=== PATIENT | female | born 1955 | race Caucasian/White ===

== ENCOUNTER 2016-06-01 20:40 | Inpatient (IN) | payer MEDICARE, OTHER ==
[~2016-06-01] VITALS: Ht 160 cm; Wt 72.1 kg
[2016-06-01 23:35] LABS: HEMOGLOBIN 13.6 gm/dl (12.3-15.3); RED BLOOD COUNT 4.31 M/UL (4.00-5.10)
[2016-06-01 23:53] LABS: BUN/CREATININE RATIO 19 (0-10)
[2016-06-02] MEDS ORDERED: COUMADIN 1MG TAB1 MG PO (12:55)
[2016-06-02] MEDS ORDERED: NORVASC 5 MG TAB5 MG PO (12:55)
[2016-06-02] MEDS ORDERED: LIPITOR TAB 2020 MG PO (12:55)
[2016-06-02] MEDS ORDERED: EFFEXOR XR 150150 MG PO (12:55)
[2016-06-02] MEDS ORDERED: KLONOPIN TAB 00.5 MG PO (12:56)
[2016-06-02] MEDS ORDERED: LORTAB 7.5-3251 EACH PO (12:56)
[2016-06-02] MEDS ORDERED: LISINOPRIL20 MG PO (12:56)
[2016-06-02] MEDS ORDERED: OMEPRAZOLE40 MG PO (12:57)
[2016-06-02] MEDS ORDERED: FOLIC ACID 1 MG1 MG PO (12:58)
[2016-06-02] MEDS ORDERED: ASPIRIN EC81 MG PO (12:58)
[2016-06-02] MEDS ORDERED: ZANAFLEX4 M1 PO (12:58)
[2016-06-02] MEDS ORDERED: NEURONTIN 300300 MG PO (12:58)
[2016-06-02] MEDS ORDERED: BENADRYL 25MG C25 MG PO (12:59)
[2016-06-03 05:45] LABS: HEMOGLOBIN 12.8 gm/dl (12.3-15.3); RED BLOOD COUNT 4.15 M/UL (4.00-5.10); WHITE BLOOD COUNT 10.9 K/UL (4.5-11.0)
[2016-06-03 06:03] LABS: BUN/CREATININE RATIO 20 (0-10)
--- NOTE | 2016-06-03 18:34 | NUR ---
1725 - MD DR ADDISON TO ROOM; PTS BP NOTED TO BE 71/40 ON MONITOR; BP RECHECKED MANUALLY 78/44. RR 17/SHALLOW. O2 SATS 95% ON O2/2L/NC. ORDERS GIVEN/FOLLOWED FOR NS 500CC BOLUS; PT HAS NO ACUTE DISTRESS NOTED; WILL CONT TO MONITOR, PT AWAKENS TO VERBAL STIMULI, PT ABLE TO TELL NAME/BIRTHDAY/SURROUNDINGS. NO ACUTE DISTRESS NOTED 1755 IVF BOLUS COMPLETE; BP 74/40 RR 17/SHALLOW. PT CONT TO AWAKEN TO VERBAL STIMULI WITH MINIMAL STIMULATION. DR. ADDISON NOTIFIED; ADDITIONAL 500CC BOLUS GIVEN PER MD ORDER. PT CONT TO HAVE NO ACUTE DISTRESS NOTED; WILL CONT TO MONITOR. 1830 - PT BP RECHECKED, MANUALLY 98/64. DR. ADDISON NOTIFIED. SEE NEW ORDERS. PT CONT TO AWAKE TO VERBAL STIMULI; NO ACUTE DISTRESS NOTED; WILL CONT TO MONITOR.
[2016-06-04 07:41] LABS: BUN/CREATININE RATIO 20 (0-10)
[2016-06-04 08:38] LABS: WHITE BLOOD COUNT 9.2 K/UL (4.5-11.0)
[2016-06-04 08:39] LABS: HEMOGLOBIN 9.1 gm/dl (12.3-15.3)
[2016-06-05 05:56] LABS: HEMOGLOBIN 9.2 gm/dl (12.3-15.3); RED BLOOD COUNT 2.97 M/UL (4.00-5.10)
[2016-06-05 06:16] LABS: BUN/CREATININE RATIO 25 (0-10)
[2016-06-06 06:25] LABS: HEMOGLOBIN 9.7 gm/dl (12.3-15.3); RED BLOOD COUNT 3.16 M/UL (4.00-5.10); WHITE BLOOD COUNT 7.3 K/UL (4.5-11.0)
[2016-06-06 06:58] LABS: BUN/CREATININE RATIO 20 (0-10)
== END 2016-06-07 14:00 | disposition home or self-care (01) | DRG 493 ==
LOC: ER1 20:40 → ZEROF 06-02 08:42 → M/S 06-02 08:42
PROVIDERS: Internal Medicine; Orthopaedic Surgery; Physician Assistant; ADMIT Family Medicine
PROC: 0QSG04Z Reposition Right Tibia with Internal Fixation Device, Open Approach (ICD-10-PCS; 2016-06-03)
PROC: 0QSJ04Z Reposition Right Fibula with Internal Fixation Device, Open Approach (ICD-10-PCS; principal; 2016-06-03 15:45)
DX: S82.841A Displaced bimalleolar fracture of right lower leg, initial encounter for closed fracture (principal); D68.59 Other primary thrombophilia; W10.9XXA Fall (on) (from) unspecified stairs and steps, initial encounter; Y92.039 Unspecified place in apartment as the place of occurrence of the external cause; I95.2 Hypotension due to drugs; T50.995A Adverse effect of other drugs, medicaments and biological substances, initial encounter; I10 Essential (primary) hypertension; K21.9 Gastro-esophageal reflux disease without esophagitis; F17.210 Nicotine dependence, cigarettes, uncomplicated; Z79.01 Long term (current) use of anticoagulants; Z86.711 Personal history of pulmonary embolism; F41.9 Anxiety disorder, unspecified; Z90.49 Acquired absence of other specified parts of digestive tract; Z90.710 Acquired absence of both cervix and uterus; Z79.82 Long term (current) use of aspirin; Z79.899 Other long term (current) drug therapy; Z82.49 Family history of ischemic heart disease and other diseases of the circulatory system; Z83.3 Family history of diabetes mellitus; D72.829 Elevated white blood cell count, unspecified; G89.29 Other chronic pain; M54.9 Dorsalgia, unspecified; Z87.311 Personal history of (healed) other pathological fracture; F32.9 Major depressive disorder, single episode, unspecified
CPT/HCPCS: 27808; 36415; 51702; 71010; 72128; 72131; 73564; 73600; 73610; 73630; 76000; 80048; 80053; 81001; 83735; 85025; 85027; 85610; 85730; 90471; 90714; 93005; 96374; 96375; 96376; 97110; 97116; 97530; 97535; 99152; 99153; 99284; C1713; J0690; J1100; J1885; J2250; J2270; J2405; J2550; J2765; J3010; J7030; J7120

== ENCOUNTER → 2016-07-08 | Outpatient (CLI) | payer MEDICARE ==
[~2016-07-08] MED LIST: ASPIRIN EC81 MG PO; BENADRYL 25MG C25 MG PO; COUMADIN 1MG TAB1 MG PO; EFFEXOR XR 150150 MG PO; FOLIC ACID 1 MG1 MG PO; KLONOPIN TAB 00.5 MG PO; LIPITOR TAB 2020 MG PO; LISINOPRIL20 MG PO; LORTAB 7.5-3251 EACH PO; NEURONTIN 300300 MG PO; NORVASC 5 MG TAB5 MG PO; OMEPRAZOLE40 MG PO; ZANAFLEX4 M1 PO
== END ==
LOC: HH 14:13
DX: Z51.81 Encounter for therapeutic drug level monitoring (principal); Z79.01 Long term (current) use of anticoagulants; Z86.711 Personal history of pulmonary embolism
CPT/HCPCS: 85610

== ENCOUNTER → 2016-08-03 | Outpatient (CLI) | payer MEDICARE | LOC: LAB 17:02 | DX: Z51.81 Encounter for therapeutic drug level monitoring (principal); Z86.711 Personal history of pulmonary embolism; Z79.01 Long term (current) use of anticoagulants | CPT/HCPCS: 85610 ==

== ENCOUNTER → 2016-08-09 | Outpatient (CLI) | payer MEDICARE | LOC: OPS 10:52 | DX: Z51.81 Encounter for therapeutic drug level monitoring (principal); Z79.01 Long term (current) use of anticoagulants; Z86.711 Personal history of pulmonary embolism | CPT/HCPCS: 85610 ==

== ENCOUNTER → 2020-05-07 | Outpatient (CLI) | payer MEDICARE, OTHER ==
[~2020-05-07] MED LIST changes: +AUGMENTIN 875-1 EACH PO; +B-12500 MC1 SL; +BENADRYL25 MG PO; +BENTYL 20MG TAB20 MG PO; +CARVEDILOL12.5 MG PO; +CEFUROXIME250 MG PO; +CLONAZEPAM1 MG PO; +CLONIDINE HCL0.1 MG PO; +COQ-10100 MG PO; +COREG 12.5MG12.5 MG PO; +CYCLOBENZAPRINE10 MG PO; +DOK100 MG PO; +ECOTRIN81 MG PO; +FERROUS SULFAT325 M2 PO; +FLAGYL500 MG PO; +FLORASTOR250 MG PO; +FOLIC ACID1 MG PO; +FUROSEMIDE20 MG PO; +GABAPENTIN300 MG PO; +GABAPENTIN600 MG PO; +GRALISE600 MG PO; +HYDROCODON-ACE1 EAC2 PO; +JANTOVEN1 MG PO; +LASIX20 MG PO; +LOVENOX80 MG/0.8 SC; +METOPROLOL SUCC25 MG PO; +MYCOSTATIN100000 UTS PO; +NITROGLYCERIN0.4 MG SL; +NORCO 7.5-3251 EACH PO; +OMEPRAZOLE20 MG PO; +POTASSIUM CHLO10 ME1 PO; +POTASSIUM CHLO10 ME2 PO; +PROBIOTIC & AC1 EACH PO; +PROTONIX 40 MG40 M1 PO; +REPATHA SC; +REPATHA SQ; +TOPROL XL25 MG PO; +VITAMIN B-12500 MCG PO; +VITAMIN D3125 MCG PO; +VITAMIN D3250 MC2 PO; +ZOFRAN ODT 4 MG4 MG PO
== END ==
LOC: RAD 08:00
DX: K52.9 Noninfective gastroenteritis and colitis, unspecified (principal); K22.2 Esophageal obstruction; K44.9 Diaphragmatic hernia without obstruction or gangrene
CPT/HCPCS: 74220

== ENCOUNTER 2020-05-25 18:59 | Emergency (ER) | payer MEDICARE, OTHER ==
[~2020-05-25 18:59] MED LIST changes: -CEFUROXIME250 MG PO; -GABAPENTIN300 MG PO; -GRALISE600 MG PO; -HYDROCODON-ACE1 EAC2 PO; -OMEPRAZOLE20 MG PO; -PROTONIX 40 MG40 M1 PO
[2020-05-25 19:35] LABS: RED BLOOD COUNT 4.09 M/UL (4.00-5.10); WHITE BLOOD COUNT 10.8 K/UL (4.5-11.0)
[2020-05-25 19:38] LABS: HEMOGLOBIN 12.7 gm/dl (12.3-15.3)
[2020-05-25 19:51] LABS: BUN/CREATININE RATIO 41 (0-10)
[2020-05-26] MEDS ORDERED: METOPROLOL SUCC25 MG PO (11:08)
== END 2020-05-25 22:28 | disposition left against medical advice (07) ==
LOC: ER1 18:59
PROVIDERS: Physician Assistant
DX: K62.5 Hemorrhage of anus and rectum (principal); I10 Essential (primary) hypertension; F17.210 Nicotine dependence, cigarettes, uncomplicated; Z86.711 Personal history of pulmonary embolism; Z90.49 Acquired absence of other specified parts of digestive tract; Z88.5 Allergy status to narcotic agent; Z79.01 Long term (current) use of anticoagulants; Z90.710 Acquired absence of both cervix and uterus
CPT/HCPCS: 80053; 83605; 85025; 85610; 96374; 96375; 99283; C9113; J2060; J2250; J2405; J7030; Q9967

== ENCOUNTER 2020-05-26 04:50 | Inpatient (IN) | payer MEDICARE, OTHER ==
[~2020-05-26] VITALS: Ht 172.7 cm; Wt 70.0 kg
[2020-05-26 05:03] LABS: WHITE BLOOD COUNT 8.5 K/UL (4.5-11.0)
[2020-05-26 05:06] LABS: RED BLOOD COUNT 3.58 M/UL (4.00-5.10)
[2020-05-26 05:28] LABS: BUN/CREATININE RATIO 63 (0-10)
[2020-05-26 06:58] LABS: HEMOGLOBIN 10.8 gm/dl (12.3-15.3)
[2020-05-26] MEDS ORDERED: METOPROLOL SUCC25 MG PO (11:08)
[2020-05-26 13:07] LABS: HEMOGLOBIN 13.8 gm/dl (12.3-15.3); RED BLOOD COUNT 4.44 M/UL (4.00-5.10); WHITE BLOOD COUNT 11.4 K/UL (4.5-11.0)
[2020-05-26 13:39] LABS: BUN/CREATININE RATIO 52 (0-10)
[2020-05-27 06:25] LABS: WHITE BLOOD COUNT 11.1 K/UL (4.5-11.0)
[2020-05-27 06:28] LABS: HEMOGLOBIN 11.6 gm/dl (12.3-15.3); RED BLOOD COUNT 3.78 M/UL (4.00-5.10)
[2020-05-27 06:57] LABS: BUN/CREATININE RATIO 41 (0-10)
[2020-05-28 05:08] LABS: HEMOGLOBIN 10.8 gm/dl (12.3-15.3); RED BLOOD COUNT 3.45 M/UL (4.00-5.10); WHITE BLOOD COUNT 11.3 K/UL (4.5-11.0)
[2020-05-28 05:26] LABS: BUN/CREATININE RATIO 38 (0-10)
[2020-05-29 05:20] LABS: HEMOGLOBIN 12.1 gm/dl (12.3-15.3); RED BLOOD COUNT 3.87 M/UL (4.00-5.10); WHITE BLOOD COUNT 13.3 K/UL (4.5-11.0)
[2020-05-29 05:34] LABS: BUN/CREATININE RATIO 20 (0-10)
[2020-05-30 03:49] LABS: HEMOGLOBIN 11.7 gm/dl (12.3-15.3); RED BLOOD COUNT 3.75 M/UL (4.00-5.10)
[2020-05-30 04:28] LABS: BUN/CREATININE RATIO 22 (0-10)
[2020-06-01 03:14] LABS: HEMOGLOBIN 11.6 gm/dl (12.3-15.3); RED BLOOD COUNT 3.74 M/UL (4.00-5.10); WHITE BLOOD COUNT 9.5 K/UL (4.5-11.0)
--- NOTE | 2020-06-01 03:22 | NUR ---
PT'S TUBE FEEDING WAS GOING AT 40 ML/HR. PT WAS COMPLAINING OF ABDOMINAL PAIN AND HAVING DIARRHEA. PT HAD 0 ML OF RESIDUAL. I DECREASED PT'S TUBE FEEDING TO 20 ML/HR TO SEE IF PT TOLERATED THAT BETTER. PT HAS NO COMPLAINTS AT THIS MOMENT. WILL CONTINUE TO MONITOR.
[2020-06-01 03:50] LABS: BUN/CREATININE RATIO 24 (0-10)
--- NOTE | 2020-06-01 12:28 | NUR ---
REMOVED OLD FENTANYL PATCH FROM BAILEE AND DISPOSED OF IN HAZARDOUS WASTE CONTAINER IN MED ROOM. WITNESSES BY ANA MONTERO RN
--- NOTE | 2020-06-01 18:26 | NUR ---
PT REMOVED HER CENTRAL LINE DRESSING. REPLACED CENTRAL LINE WITH NEW DRESSING. PT INSTRUCTED ON IMPORTANCE OF LEAVING LINE ALONE IN ORDER TO PREVENT INFECTION.
--- NOTE | 2020-06-01 21:58 | NUR ---
PT CONFUSED, CLIMBING OUT OF BED. [facility] AND NOTIFIED PT'S SON KEYSHA TO INFORM HIM OF THE SITUATION AND TO SEE IF HE WANTED TO COME SIT WITH THE PATIENT. UNFORTUNATELY HE IS UNABLE TO DO SO AT THIS TIME. WILL CONTINUE TO MONITOR.
--- NOTE | 2020-06-01 22:06 | NUR ---
ZION (CHARGE NURSE) WILL BE SITTING WITH PATIENT. WILL CONTINUE TO MONITOR.
--- NOTE | 2020-06-01 22:46 | NUR ---
PT IS VERY CONFUSED, UNCOOPERATIVE AND AGITATED. DRUG DEPARTMENT WORKER WAS NOTIFIED OF SITUATION. PT NOW HAS A 1:1 SITTER AT BEDSIDE. PT'S SON KEYSHA WAS ALSO NOTIFIED OF PT'S CURRENT CONFUSION.
[2020-06-02 03:52] LABS: BUN/CREATININE RATIO 29 (0-10)
[2020-06-03 03:14] LABS: HEMOGLOBIN 12.1 gm/dl (12.3-15.3); RED BLOOD COUNT 3.92 M/UL (4.00-5.10)
[2020-06-03 03:17] LABS: WHITE BLOOD COUNT 6.7 K/UL (4.5-11.0)
[2020-06-03 03:37] LABS: BUN/CREATININE RATIO 29 (0-10)
[2020-06-03] MEDS ORDERED: GABAPENTIN300 MG PO (09:26)
[2020-06-03] MEDS ORDERED: PROTONIX 40 MG40 M1 PO (09:26)
[2020-06-03] MEDS ORDERED: CEFUROXIME250 MG PO (09:32)
[2020-06-04 03:05] LABS: HEMOGLOBIN 10.9 gm/dl (12.3-15.3)
[2020-06-04 03:11] LABS: RED BLOOD COUNT 3.49 M/UL (4.00-5.10)
[2020-06-04 03:29] LABS: BUN/CREATININE RATIO 17 (0-10)
[2020-06-05 03:06] LABS: HEMOGLOBIN 10.8 gm/dl (12.3-15.3); RED BLOOD COUNT 3.51 M/UL (4.00-5.10); WHITE BLOOD COUNT 6.7 K/UL (4.5-11.0)
[2020-06-05 03:34] LABS: BUN/CREATININE RATIO 14 (0-10)
== END 2020-06-05 16:09 | disposition home or self-care (01) | DRG 919 ==
LOC: ER1 04:50 → CCU 08:22 → CDU 08:22 → M/S 08:22 → CCU 10:12 → M/S 05-31 18:21
PROVIDERS: Emergency Medicine; Internal Medicine; Psychiatry & Neurology Neurology; ADMIT Internal Medicine Infectious Disease
PROC: 30233N1 Transfusion of Nonautologous Red Blood Cells into Peripheral Vein, Percutaneous Approach (ICD-10-PCS; principal; 2020-05-26)
PROC: 0BH17EZ Insertion of Endotracheal Airway into Trachea, Via Natural or Artificial Opening (ICD-10-PCS; 2020-05-26)
PROC: 5A1945Z Respiratory Ventilation, 24-96 Consecutive Hours (ICD-10-PCS; 2020-05-26)
PROC: 02HV33Z Insertion of Infusion Device into Superior Vena Cava, Percutaneous Approach (ICD-10-PCS; 2020-05-26)
DX: K91.840 Postprocedural hemorrhage of a digestive system organ or structure following a digestive system procedure (principal); G92 Toxic encephalopathy; J96.01 Acute respiratory failure with hypoxia; J18.9 Pneumonia, unspecified organism; D68.2 Hereditary deficiency of other clotting factors; N30.00 Acute cystitis without hematuria; I50.32 Chronic diastolic (congestive) heart failure; D62 Acute posthemorrhagic anemia; D68.59 Other primary thrombophilia; Y83.8 Other surgical procedures as the cause of abnormal reaction of the patient, or of later complication, without mention of misadventure at the time of the procedure; T42.6X1A Poisoning by other antiepileptic and sedative-hypnotic drugs, accidental (unintentional), initial encounter; Z20.822 Contact with and (suspected) exposure to COVID-19; I48.0 Paroxysmal atrial fibrillation; I16.0 Hypertensive urgency; B96.1 Klebsiella pneumoniae [K. pneumoniae] as the cause of diseases classified elsewhere; E87.6 Hypokalemia; E11.9 Type 2 diabetes mellitus without complications; I11.0 Hypertensive heart disease with heart failure; F41.9 Anxiety disorder, unspecified; Z90.49 Acquired absence of other specified parts of digestive tract; K21.9 Gastro-esophageal reflux disease without esophagitis; K22.2 Esophageal obstruction; F17.210 Nicotine dependence, cigarettes, uncomplicated; Z86.711 Personal history of pulmonary embolism; Z79.01 Long term (current) use of anticoagulants; Z90.710 Acquired absence of both cervix and uterus; Z98.890 Other specified postprocedural states; Z88.5 Allergy status to narcotic agent; Z79.82 Long term (current) use of aspirin; Z79.899 Other long term (current) drug therapy; Z82.49 Family history of ischemic heart disease and other diseases of the circulatory system
CPT/HCPCS: 31500; 36415; 36430; 36600; 70450; 71045; 74018; 80048; 80053; 81001; 82140; 82272; 82550; 82553; 82803; 83540; 83550; 83605; 83690; 83735; 84132; 84484; 85014; 85018; 85025; 85610; 85730; 86140; 86850; 86900; 86901; 86920; 86927; 87040; 87077; 87086; 87186; 92526; 92610; 93005; 94002; 94003; 94760; 96374; 96375; 96376; 97110-GP-CQ; 97116-GP-CQ; 97162; 99283; 99285; C9113; J0360; J1160; J1170; J1335; J1630; J1650; J1940; J2060; J2250; J2405; J2704; J3010; J3360; J3480; J3486; J7030; J7040; P9016; P9017; Q9967; U0002

== ENCOUNTER → 2020-06-10 | Outpatient (CLI) | payer MEDICARE, OTHER ==
[~2020-06-10] MED LIST changes: +CEFUROXIME250 MG PO; +GABAPENTIN300 MG PO; +GRALISE600 MG PO; +HYDROCODON-ACE1 EAC2 PO; +OMEPRAZOLE20 MG PO; +PROTONIX 40 MG40 M1 PO
[2020-06-10 12:48] LABS: HEMOGLOBIN 11.8 gm/dl (12.3-15.3); RED BLOOD COUNT 3.78 M/UL (4.00-5.10); WHITE BLOOD COUNT 8.2 K/UL (4.5-11.0)
== END ==
LOC: LAB 12:10
PROVIDERS: Family Medicine
DX: I48.91 Unspecified atrial fibrillation (principal); K92.2 Gastrointestinal hemorrhage, unspecified
CPT/HCPCS: 36415; 80048; 82728; 83540; 83550; 85025; 85610

== ENCOUNTER 2020-07-15 17:13 | Emergency (ER) | payer MEDICARE, OTHER ==
[~2020-07-15 17:13] MED LIST changes: -GRALISE600 MG PO; -HYDROCODON-ACE1 EAC2 PO; -OMEPRAZOLE20 MG PO
[2020-07-15 17:59] LABS: HEMOGLOBIN 12.8 gm/dl (12.3-15.3); RED BLOOD COUNT 4.11 M/UL (4.00-5.10); WHITE BLOOD COUNT 9.2 K/UL (4.5-11.0)
[2020-07-15 18:25] LABS: BUN/CREATININE RATIO 25 (0-10)
== END 2020-07-15 22:25 | disposition short-term general hospital (02) ==
LOC: ER1 17:13
PROVIDERS: Student in an Organized Health Care Education/Training Program
DX: K63.1 Perforation of intestine (nontraumatic) (principal); K62.5 Hemorrhage of anus and rectum; D64.9 Anemia, unspecified; I10 Essential (primary) hypertension; Z90.49 Acquired absence of other specified parts of digestive tract; Z88.5 Allergy status to narcotic agent; F17.210 Nicotine dependence, cigarettes, uncomplicated; Z79.899 Other long term (current) drug therapy
CPT/HCPCS: 36430; 80053; 81001; 82550; 82553; 83605; 83735; 83874; 84100; 84484; 85025; 85610; 85730; 86850; 86870; 86900; 86901; 86920; 86922; 86927; 87040; 87086; 93005; 96365; 96366; 96367; 96368; 96375; 99284; J0692; J1170; J2405; J3475; J7030; J7070; P9017; Q9967

== ENCOUNTER 2020-08-17 15:57 | Emergency (ER) | payer MEDICARE, OTHER ==
[2020-08-17 16:57] LABS: HEMOGLOBIN 10.3 gm/dl (12.3-15.3); RED BLOOD COUNT 3.41 M/UL (4.00-5.10); WHITE BLOOD COUNT 9.4 K/UL (4.5-11.0)
[2020-08-17 17:16] LABS: BUN/CREATININE RATIO 14 (0-10)
[2020-08-18 06:22] LABS: HEMOGLOBIN 10.1 gm/dl (12.3-15.3); RED BLOOD COUNT 3.36 M/UL (4.00-5.10); WHITE BLOOD COUNT 8.4 K/UL (4.5-11.0)
[2020-08-18 08:34] LABS: BUN/CREATININE RATIO 14 (0-10)
[2020-08-18 14:28] LABS: HEMOGLOBIN 11.3 gm/dl (12.3-15.3); WHITE BLOOD COUNT 8.8 K/UL (4.5-11.0)
[2020-08-18 14:33] LABS: RED BLOOD COUNT 3.8 M/UL (4.00-5.10)
[2020-08-18 14:45] LABS: BUN/CREATININE RATIO 14 (0-10)
[2020-08-18] MEDS ORDERED: GRALISE600 MG PO (17:46)
[2020-08-18] MEDS ORDERED: OMEPRAZOLE40 MG PO (17:48)
[2020-08-18] MEDS ORDERED: COREG 12.5MG12.5 MG PO (17:49)
[2020-08-18] MEDS ORDERED: CYCLOBENZAPRINE10 MG PO (17:50)
[2020-08-18] MEDS ORDERED: OMEPRAZOLE20 MG PO (17:51)
[2020-08-18] MEDS ORDERED: HYDROCODON-ACE1 EAC2 PO (17:52)
[2020-08-18] MEDS ORDERED: CLONAZEPAM1 MG PO (17:53)
[2020-08-18] MEDS ORDERED: FOLIC ACID 1 MG1 MG PO (17:59)
[2020-08-19 04:43] LABS: HEMOGLOBIN 9.6 gm/dl (12.3-15.3); WHITE BLOOD COUNT 7.6 K/UL (4.5-11.0)
[2020-08-19 04:50] LABS: RED BLOOD COUNT 3.27 M/UL (4.00-5.10)
[2020-08-19 05:13] LABS: BUN/CREATININE RATIO 8 (0-10)
[2020-08-19 18:43] LABS: ADENOVIRUS F 40/41 Not Detected (Negative); ASTROVIRUS Not Detected (Negative); CAMPYLOBACTER Not Detected (Negative); CLOSTRIDIUM DIFFICILE TOX A/B Not Detected (Negative); CRYPTOSPORIDIUM Not Detected (Negative); E.COLI 0157 Not Detected (Negative); ENTAMOEBA HISTOLYTICA Not Detected (Negative); ENTEROAGGREGATIVE E.COLI (EAEC Not Detected (Negative); ENTEROPATHOGENIC E.COLI (EPEC) Not Detected (Negative); ENTEROTOXIGENIC E.COLI (ETEC) Not Detected (Negative); GIARDIA LAMBLIA Not Detected (Negative); NOROVIRUS GI/GII Not Detected (Negative); PLESIOMONAS SHIGELLOIDES Not Detected (Negative); ROTOVIRUS A Not Detected (Negative); SALMONELLA Not Detected (Negative); SAPOVIRUS Not Detected (Negative); SHIG/ENTEROINVAS.ECOLI (EIEC) Not Detected (Negative); SHIGA-LIK TOX.PRO.E.COLI (STEC Not Detected (Negative); VIBRIO Not Detected (Negative); VIBRIO CHOLERAE Not Detected (Negative); YERSINIA ENTEROCOLITICA Not Detected (Negative)
[2020-08-19 19:33] LABS: HEMOGLOBIN 9.9 gm/dl (12.3-15.3)
[2020-08-20 04:10] LABS: RED BLOOD COUNT 3.03 M/UL (4.00-5.10); WHITE BLOOD COUNT 6.5 K/UL (4.5-11.0)
[2020-08-20 04:26] LABS: BUN/CREATININE RATIO 7 (0-10)
== END 2020-08-20 20:26 | disposition short-term general hospital (02) ==
LOC: ER1 15:57
PROVIDERS: Emergency Medicine; Internal Medicine; Physician Assistant
DX: K62.5 Hemorrhage of anus and rectum (principal); L02.211 Cutaneous abscess of abdominal wall; K21.9 Gastro-esophageal reflux disease without esophagitis; I10 Essential (primary) hypertension; Z20.822 Contact with and (suspected) exposure to COVID-19; Z79.01 Long term (current) use of anticoagulants; Z88.5 Allergy status to narcotic agent; Z90.49 Acquired absence of other specified parts of digestive tract
CPT/HCPCS: 80048; 80053; 82272; 83605; 83690; 83735; 85014; 85018; 85025; 85027; 85610; 85730; 86850; 86870; 86900; 86901; 86902; 86920; 86922; 87040; 87507; 96365; 96375; 96376; 99285; J1170; J2405; J2543; Q9967; U0002

== ENCOUNTER 2020-11-12 02:13 | Emergency (ER) | payer MEDICARE ==
[~2020-11-12 02:13] MED LIST changes: +GRALISE600 MG PO; +HYDROCODON-ACE1 EAC2 PO; +OMEPRAZOLE20 MG PO
[2020-11-12 05:32] LABS: HEMOGLOBIN 12.7 gm/dl (12.3-15.3); RED BLOOD COUNT 4.49 M/UL (4.00-5.10); WHITE BLOOD COUNT 6.7 K/UL (4.5-11.0)
[2020-11-12 05:55] LABS: BUN/CREATININE RATIO 37 (0-10)
== END 2020-11-12 07:15 | disposition home or self-care (01) ==
LOC: ER1 02:13
PROVIDERS: Physician Assistant
DX: U07.1 COVID-19 (principal); I11.9 Hypertensive heart disease without heart failure; I48.91 Unspecified atrial fibrillation; E78.5 Hyperlipidemia, unspecified; Z86.711 Personal history of pulmonary embolism; Z90.49 Acquired absence of other specified parts of digestive tract; Z90.710 Acquired absence of both cervix and uterus; Z93.3 Colostomy status; Z79.01 Long term (current) use of anticoagulants
CPT/HCPCS: 71045; 80053; 82550; 82553; 83874; 83880; 84484; 85025; 85610; 85730; 99285; U0002

== ENCOUNTER 2020-11-15 12:29 | Emergency (ER) | payer MEDICARE ==
[2020-11-15 15:19] LABS: HEMOGLOBIN 13.9 gm/dl (12.3-15.3); RED BLOOD COUNT 5.27 M/UL (4.00-5.10); WHITE BLOOD COUNT 10.1 K/UL (4.5-11.0)
== END 2020-11-15 17:55 | disposition home or self-care (01) ==
LOC: ER1 12:29
PROVIDERS: Family Medicine
DX: Z23 Encounter for immunization (principal); U07.1 COVID-19; I10 Essential (primary) hypertension; Z86.711 Personal history of pulmonary embolism
CPT/HCPCS: 80053; 83615; 85025; 85610; 86140; 93005; 96374; 99283; J2405; M0243

== ENCOUNTER 2021-02-15 15:48 | Emergency (ER) | payer MEDICARE | END 2021-02-15 16:45 | disposition left against medical advice (07) | LOC: ER1 15:48 | DX: Z53.21 Procedure and treatment not carried out due to patient leaving prior to being seen by health care provider (principal) ==

== ENCOUNTER 2021-06-25 12:08 | Emergency (ER) | payer MEDICARE ==
[~2021-06-25 12:08] MED LIST changes: +CEPHALEXIN500 MG PO
[2021-06-25 12:46] LABS: HEMOGLOBIN 13.2 gm/dl (12.3-15.3); RED BLOOD COUNT 4.31 M/UL (4.00-5.10)
[2021-06-25 13:02] LABS: BUN/CREATININE RATIO 16 (0-10)
== END 2021-06-25 19:05 | disposition short-term general hospital (02) ==
LOC: ER1 12:08
PROVIDERS: Emergency Medicine
DX: I63.9 Cerebral infarction, unspecified (principal); I10 Essential (primary) hypertension; E07.9 Disorder of thyroid, unspecified; Z20.822 Contact with and (suspected) exposure to COVID-19; F17.200 Nicotine dependence, unspecified, uncomplicated; Z86.711 Personal history of pulmonary embolism
CPT/HCPCS: 70450; 70496; 70498; 71045; 72125; 80053; 81001; 82550; 82553; 84484; 85025; 85610; 85730; 93005; 96374; 96375; 99285; J0360; J2405; J2997; Q9967; U0002